=== PATIENT | female | born 1965 | race Caucasian/White ===

== ENCOUNTER → 2016-05-08 | Outpatient (CLI) | payer BC ==
--- NOTE | ~2016-05-08 | MY11 ---
[facility] A Service of [facility] RADIOLOGY TEXT RESULTS PATIENT: ALFONSO GROSSMAN LOCATION: [facility] : 63 UNIT #: [id number] AGE: [address]: Jorge Godinez MD SEX: F ORDER DR: [id number] [address] [address] [id number] O MR#: [id number] Acc #: [id number] NAME: ALFONSO GROSSMAN : 1965 SEX: F STUDY DATE/TIME: 05/08/2016 9:11 UNIT: [facility] ROOM: STUDY DESCRIPTION: MY Mammogram Screening Dig Piyush Attending Physician: Jorge Godinez M.D. Referring Physician: Jorge Godinez M.D. Ordering Physician: Trent Littlejohn Jr., M.D. Primary Care Physician: Trent Littlejohn Jr., M.D. MEDICAL IMAGING REPORT This report is preliminary unless electronic signature is present. EXAM Digital screening mammogram, 05/08/2016 HISTORY 51-year-old woman positive family history, maternal aunt. Patient on hormone replacement x6 years. Annual screening. COMPARISON Mammograms date to 03/03/2007 with most recent 04/18/2015. FINDINGS Digital imaging of each breast was completed utilizing screening protocol. Review includes FDA-approved CAD device. Breast parenchyma is partially fatty replaced. Subareolar duct prominence is noted in each breast, slightly dominant in the left breast. There are no suspicious mass characteristics. I see no interval occurring microcalcifications and no architectural deformity. IMPRESSION Stable benign mammogram. Annual screening recommended. Patients over the age of 40 are entered into a reminder system with target due date for the next mammogram. A result letter will also be sent to the patient. BIRADS: 2 Benign Finding Dictated by... Lucas Chavarria M.D. THIS IS AN ELECTRONICALLY VERIFIED REPORT Lucas Chavarria M.D. at 05/08/2016 1:29 PM [facility] A Service of [facility] RADIOLOGY TEXT RESULTS PATIENT: ALFONSO GROSSMAN LOCATION: [facility] #: [id number] : 63 UNIT #: [id number] AGE: [address]: Jorge Godinez MD SEX: F ORDER DR: Jose Carlos TD: 05/08/2016 10:15 JOB #: [id number] MEDICAL IMAGING REPORT
--- NOTE | ~2016-05-08 | US5 ---
[facility] A Service of [facility] RADIOLOGY TEXT RESULTS PATIENT: ALFONSO GROSSMAN LOCATION: [facility] : 63 UNIT #: [id number] AGE: [address]: Jorge Godinez MD SEX: F ORDER DR: [id number] [address] [address] [id number] O MR#: [id number] Acc #: [id number] NAME: ALFONSO GROSSMAN : 1965 SEX: F STUDY DATE/TIME: 05/08/2016 8:35 UNIT: [facility] ROOM: STUDY DESCRIPTION: US Abdominal Complete Attending Physician: Jorge Godinez M.D. Referring Physician: Jorge Godinez M.D. Ordering Physician: Trent Littlejohn Jr., M.D. Primary Care Physician: Trent Littlejohn Jr., M.D. MEDICAL IMAGING REPORT This report is preliminary unless electronic signature is present. EXAM Abdominal ultrasound INDICATION Right upper quadrant abdominal pain for the past month. PROCEDURE Garner-scale and Doppler imaging of the abdomen. COMPARISON None. FINDINGS Visualized portions of pancreas unremarkable. Submitted images of the abdominal aorta and inferior vena cava are unremarkable. Liver measures 13.5 cm. Unremarkable gallbladder. Right kidney measures 9.9 cm. No hydronephrosis. Spleen measures 8.8 cm. Left kidney measures 10.9 cm. IMPRESSION Negative abdominal ultrasound. Dictated by... Elliot Sánchez M.D. THIS IS AN ELECTRONICALLY VERIFIED REPORT Elliot Sánchez M.D. at 05/11/2016 9:51 AM BEARD/mia TD: 05/10/2016 11:41 JOB #: [id number] [facility] A Service [facility] RADIOLOGY TEXT RESULTS PATIENT: ALFONSO GROSSMAN LOCATION: [facility] : 63 UNIT #: [id number] AGE: [address]: Jorge Godinez MD SEX: F ORDER DR: MEDICAL IMAGING REPORT
== END | disposition home or self-care (01) ==
LOC: SMAM 08:20
DX: Z12.31 Encounter for screening mammogram for malignant neoplasm of breast (principal); R10.11 Right upper quadrant pain; Z80.3 Family history of malignant neoplasm of breast; Z79.890 Hormone replacement therapy
CPT/HCPCS: 76700; G0202